=== PATIENT | female | born 1985 | race Caucasian/White ===

== ENCOUNTER 2017-02-17 22:35 | Emergency (ER) | payer SELFPAY ==
[~2017-02-17] VITALS: Ht 160 cm; Wt 81.8 kg
[2017-02-18 00:34] VITALS: Ht 160 cm; Wt 81.8 kg
== END 2017-02-18 04:07 | disposition left against medical advice (07) ==
LOC: FTE 22:35
DX: Z53.21 Procedure and treatment not carried out due to patient leaving prior to being seen by health care provider (principal)

== ENCOUNTER 2019-01-16 19:05 | Emergency (ER) | payer MEDICAID ==
[~2019-01-16] VITALS: Ht 160 cm; Wt 85.3 kg
[2019-01-16 19:23] VITALS: Ht 160 cm; Wt 85.3 kg
[2019-01-16 21:50] VITALS: BP 118/81; PULSE 71; RESP 18
== END 2019-01-16 21:51 | disposition home or self-care (01) ==
LOC: FTE 19:05
DX: O20.9 Hemorrhage in early pregnancy, unspecified (principal); Z3A.01 Less than 8 weeks gestation of pregnancy
CPT/HCPCS: 36415; 76801; 81001; 84702; 85025; 86900; 86901; Z7502

== ENCOUNTER 2019-01-17 20:52 | Day surgery (SDC) | payer MEDICAID ==
[~2019-01-17] VITALS: Ht 160 cm; Wt 79.5 kg
[2019-01-17 21:00] VITALS: Ht 160 cm; Wt 79.5 kg
[2019-01-17] MEDS ORDERED: OXYTOCIN 10 UNIT INJ IV ONE (23:30)
[2019-01-18] VITALS (13 sets, daily range): BP systolic 99–128; BP diastolic 53–79; PULSE 72–98; RESP 14–22
[2019-01-18] MEDS ORDERED: FENTAnyl 50 MCG/ML VIAL IV PRN (02:00)
[2019-01-18] MEDS ORDERED: MEPERIDINE 25 MG INJ IV PRN (02:00)
[2019-01-18] MEDS ORDERED: PROCHLORPERAZINE 10 MG INJ IV PRN (02:00)
[2019-01-18] MEDS ORDERED: morphine 2 MG INJ IV PRN ×3 (02:00)
[2019-01-18] MEDS ORDERED: DIPHENHYDRAMINE 50 MG INJ IV PRN (02:00)
[2019-01-18] MEDS ORDERED: ONDANSETRON 4 MG INJ IV PRN (02:00)
[2019-01-18] MEDS ORDERED: LIDOCAINE 2% (SDV) 5 ML INJ ONE (02:03)
[2019-01-18] MEDS ORDERED: PROPOFOL 20 ML ONE (02:03)
[2019-01-18] MEDS ORDERED: MIDAZOLAM 1 MG/ML 2 ML INJ ONE (02:06)
[2019-01-18] MEDS ORDERED: FENTAnyl 50 MCG/ML VIAL ONE (02:28)
[2019-01-18] MEDS ORDERED: ONDANSETRON 4 MG INJ ONE (02:30)
[2019-01-18] MEDS ORDERED: CEFAZOLIN 1 GM INJ ONE (02:30)
[2019-01-18] MEDS ORDERED: DEXAMETHASONE 4 MG/ML 5 ML INJ ONE (02:30)
[2019-01-18] MEDS ORDERED: METOCLOPRAMIDE 10 MG INJ ONE (02:30)
[2019-01-18] MEDS ORDERED: OXYTOCIN 10 UNIT INJ ONE (02:35)
[2019-01-18] MEDS ORDERED: ACETAMINOPHEN 1000MG/100ML IV 100 ML IVPB PRN (03:00)
== END 2019-01-18 04:03 | disposition home or self-care (01) ==
LOC: FTE 20:52 → SDS 01-18 01:36
PROVIDERS: ATTEND Obstetrics & Gynecology
DX: O03.4 Incomplete spontaneous abortion without complication (principal)
CPT/HCPCS: 36415; 59812; 76801; 76817; 80053; 84702; 85025; 85610; 85730; 86850; 86900; 86901; 88305; 96374; J0690; J1100; J2175; J2250; J2405; J2590; J2765; J3010; Z7502; Z7512; Z7610